=== PATIENT | male | born 1990 | race African-American/Black ===

== ENCOUNTER 2022-10-02 05:37 | Emergency (ER) | payer OTHER ==
[~2022-10-02] VITALS: Ht 175.3 cm; Wt 70.2 kg
[2022-10-02 09:09] VITALS: BP 120/87
== END 2022-10-02 09:11 | disposition home or self-care (01) ==
LOC: ER 05:37
DX: Z00.00 Encounter for general adult medical examination without abnormal findings (principal)
CPT/HCPCS: 99281